=== PATIENT | female | born 1995 | race American Indian/Alaskan Native ===

== ENCOUNTER 2017-04-29 10:38 | Emergency (ER) | payer SELFPAY ==
--- NOTE | 2017-04-29 11:07 | Emergency Department Report ---
Entered by ROSCOE COLBERT, acting as scribe for HEVER MARIN NP. Chief Complaint: Abdominal Pain Stated Complaint: LWR STOMACH/BACK PAIN/VAG BLEEDING X 3 WKS Time Seen by Provider: 04/29/17 10:58 - HPI History of Present Illness: 21 y/o female, nontoxic, well nourished in appearance, no acute signs of distress presents with lower abd pain radiating towards back on the right side and vaginal bleeding that started 3 weeks ago. Pt denies dysuria, ployuria, polydipsia, fever, chills, chest pain, SOB, GUZMÁN or dizziness, numbness, tingling. Pt notes possible positive . LMP 03/28/17. - ROS Review of Systems: Pt notes lower abd pain and vaginal bleeding Pt denies dysuria, ployuria, polydipsia, fever, chills, chest pain, SOB, GUZMÁN or dizziness, numbness, tingling - Exam Vital Signs: Vital Signs 04/29/17 10:42 Temperature 98.2 F Pulse Rate 104 H Respiratory 20 Rate Blood Pressure 142/90 O2 Sat by Pulse 100 Oximetry Physical Exam: Constitutional: Non toxic appearing, NAD. Cardiovascular: Normal rate and rhythm with normal S1/S2 sounds. Respiratory: No respiratory distress. Lung sounds clear to auscultation bilaterally. Abdomen: Soft, nontender, and nondistended. Positive bowel sounds. No hepatosplenomegaly was noted. No guarding or rebound tenderness, negative epigastric bruit. Negative psoas sign, negative negron sign, negative McBurneys sign Back: CVA tenderness to the right side, no vertebral tenderness or paraspinal tenderness. ROM intact MSE screening note: Focused history and physical exam performed. Due to findings the following was ordered: Amylase, BMP, CBC, Test, Lipase and UA. ED Disposition for MSE Condition: Stable Instructions: Abdominal Pain (ED) This documentation as recorded by the scribe,ROSCOE COLBERT,accurately reflects the service I personally performed and the decisions made by TOMAS barrera MARTIN, DEENA.
[2017-04-29 11:37] LABS: Basophils % (Auto) 0.6 % (0.0-1.8); Eosinophils % (Auto) 0.9 % (0.0-4.3); Hematocrit 26.2 % (30.3-42.9); Mean Corpuscular HGB Conc 31 % (30-34); Platelet Count 432 K/mm3 (140-440); Red Blood Count 4.07 M/mm3 (3.65-5.03); White Blood Count 5.5 K/mm3 (4.5-11.0)
[2017-04-29 11:40] LABS: Mean Corpuscular Hemoglobin 20 pg (28-32); Mean Corpuscular Volume 64 fl (79-97); Red Cell Distribution Width 20.3 % (13.2-15.2)
[2017-04-29 11:44] LABS: Amylase 65 units/L (27-131); Anion Gap 18 mmol/L; Blood Urea Nitrogen 6 mg/dL (7-17); Calcium 9.2 mg/dL (8.4-10.2); Carbon Dioxide 22 mmol/L (22-30); Chloride 101.4 mmol/L (98-107); Glucose 102 mg/dL (65-100); Lipase 18 units/L (13-60); Potassium 3.7 mmol/L (3.6-5.0); Sodium 138 mmol/L (137-145)
[2017-04-29] MEDS ORDERED: ZOFRAN IV ONE (13:33)
[2017-04-29] MEDS ORDERED: NACL 0.9% 1000 ML 1,000 ML IV ONE (13:33)
--- NOTE | 2017-04-29 13:51 | Emergency Department Report ---
ED Abdominal Pain HPI - General Chief Complaint: Abdominal Pain Stated Complaint: LWR STOMACH/BACK PAIN/VAG BLEEDING X 3 WKS Time Seen by Provider: 04/29/17 13:26 Source: patient Mode of arrival: Ambulatory Limitations: No Limitations - History of Present Illness Initial Comments: Pt is a 21 yr old female with no PMHX who presents with abdominal pain and vaginal bleeding. As per patient she has had dysfunctional uterine bleeding for the last 3weeks with clots. She reports she goes through "a lot" of tampons and pads a day. Associated nausea, vomiting, lower abdominal pain and R lower back pain. Pain is sharp and constant. Exacerbated by nothing, alleviated by nothing. Otherwise no fevers, chills, GUZMÁN, CP, SOB, trauma, travel, dysuria, recent surgery, or sick contacts - Related Data Previous Rx's Medication Instructions Recorded Last Taken Type HYDROcodone/APAP 5-325 [[place] 1 each PO Q6HR PRN #12 tablet 04/29/17 Unknown Rx 5/325] medroxyPROGESTERone ACETATE 10 mg PO DAILY #30 tablet 04/29/17 Unknown Rx [Provera] Allergies Allergy/AdvReac Type Severity Reaction Status Date / Time No Known Allergies Allergy Unverified 04/29/17 10:42 ED Review of Systems ROS: Stated complaint: LWR STOMACH/BACK PAIN/VAG BLEEDING X 3 WKS Other details as noted in HPI Comment: All other systems reviewed and negative ED Past Medical Hx - Past Medical History Previous Medical History?: No - Surgical History Past Surgical History?: Yes Hx Cholecystectomy: Yes - Social History Smoking Status: Never Smoker Substance Use Type: Alcohol - Medications Home Medications: Home Medications Medication Instructions Recorded Confirmed Last Taken Type HYDROcodone/APAP 5-325 [[place] 1 each PO Q6HR PRN #12 tablet 04/29/17 Unknown Rx 5/325] medroxyPROGESTERone ACETATE 10 mg PO DAILY #30 tablet 04/29/17 Unknown Rx [Provera] ED Physical Exam - General Limitations: No Limitations General appearance: alert, in no apparent distress - Head Head exam: Present: atraumatic, normocephalic - Eye Eye exam: Present: normal appearance - ENT ENT exam: Present: mucous membranes moist - Neck Neck exam: Present: normal inspection - Respiratory Respiratory exam: Present: normal lung sounds bilaterally. Absent: respiratory distress - Cardiovascular Cardiovascular Exam: Present: regular rate, normal rhythm. Absent: systolic murmur, diastolic murmur, rubs, gallop - GI/Abdominal GI/Abdominal exam: Present: soft, tenderness (suprapubic), normal bowel sounds. Absent: distended, guarding, rebound, rigid - Rectal Rectal exam: Present: deferred - External exam: Present: normal external exam. Absent: erythema, swelling, lesions Speculum exam: Present: vaginal bleeding, other (mildly pooling of blood, no dexter hemorrhage noted) Bi-manual exam: Present: normal bi-manual exam. Absent: adnexal tenderness, uterine tenderness - Extremities Exam Extremities exam: Present: normal inspection - Back Exam Back exam: Present: normal inspection, CVA tenderness (R). Absent: CVA tenderness (L) - Neurological Exam Neurological exam: Present: alert, oriented X3, CN II-XII intact, normal gait. Absent: motor sensory deficit - Psychiatric Psychiatric exam: Present: normal affect, normal mood - Skin Skin exam: Present: warm, dry, intact, normal color. Absent: rash ED Course Vital Signs 04/29/17 04/29/17 04/29/17 10:42 15:27 15:29 Temperature 98.2 F Pulse Rate 104 H 94 H Respiratory 20 20 20 Rate Blood Pressure 142/90 Blood Pressure 131/84 [Left] O2 Sat by Pulse 100 100 99 Oximetry 04/29/17 04/29/17 16:17 17:05 Temperature Pulse Rate 80 84 Respiratory 18 Rate Blood Pressure Blood Pressure 123/84 116/61 [Left] O2 Sat by Pulse 100 99 Oximetry ED Medical Decision Making - Lab Data Result diagrams: 04/29/17 11:06 04/29/17 11:06 - Radiology Data Radiology results: report reviewed Pelvic US: Impression: Heterogeneous appearance of the endometrial echo probably related to hemorrhage. There are no other significant findings. Transcribed By: MRP Dictated By: GINI TONEY MD Electronically Authenticated By: GINI TONEY MD Signed Date/Time: 04/29/17 8870 - Medical Decision Making Case d/w Dr Pruitt for DUB with Hgb of 8, patient is hemodynamically stable Rec Provera 10mg TID for 3 days, BID for 3 days, then QD until seen by international first officer Critical care attestation.: If time is entered above; I have spent that time in minutes in the direct care of this critically ill patient, excluding procedure time. ED Disposition Clinical Impression: Dysfunctional uterine bleeding Disposition: TO HOME OR SELFCARE Is pt being admited?: No Condition: Stable Instructions: Dysfunctional Uterine Bleeding (ED), Abdominal Pain (ED) Prescriptions: HYDROcodone/APAP 5-325 [[place] 5/325] 1 each PO Q6HR PRN #12 tablet PRN Reason: Pain medroxyPROGESTERone ACETATE [Provera] 10 mg PO DAILY #30 tablet Referrals: PRIMARY CARE, [Primary Care Provider] - 3-5 Days
--- NOTE | 2017-04-29 15:00 | Ultrasound Report ---
Transvaginal and transabdominal pelvic ultrasound. History: Dysfunctional uterine bleeding. Findings: The uterus is normal in size and configuration measuring 8.4 x 4.6 x 5.5 cm. The endometrial echo measures 12 mm in thickness and appears heterogeneous. The ovaries are suboptimally visualized, but there is no evidence of ovarian mass. There is no fluid within the cul-de-sac. Impression: Heterogeneous appearance of the endometrial echo probably related to hemorrhage. There are no other significant findings.
[2017-04-29] MEDS ORDERED: MORPHINE IV ONE ×2 (15:12→16:47)
[2017-04-29] MEDS ORDERED: MORPHINE ONE ×2 (15:12→16:47)
[2017-04-29 17:28] LABS: Bilirubin,Urine NEG (Negative); Blood,Urine MOD (Negative); Ketones,Urine NEG (Negative); Leukocyte Esterase,Urine SM (Negative); Mucus,Urine FEW /HPF; Nitrite,Urine NEG (Negative); Protein,Urine <15 mg/dL mg/dL (Negative); Urobilinogen,Urine < 2.0 mg/dL (<2.0)
[2017-04-29 17:57] VITALS: BP 113/64
== END 2017-04-29 17:56 | disposition home or self-care (01) ==
LOC: ED 10:38
DX: N93.8 Other specified abnormal uterine and vaginal bleeding (principal); Z90.49 Acquired absence of other specified parts of digestive tract
CPT/HCPCS: 36415; 76830; 76856; 80048; 81001; 82150; 83690; 84703; 85025; 96361; 96374; 96375; 96376; 99284; J2270; J2405; J7030